=== PATIENT | female | born 1975 | race Caucasian/White ===

== ENCOUNTER → 2018-03-16 15:46 | Outpatient (CLI) | payer OTHER | END | disposition home or self-care (01) | LOC: LAB 15:46 | DX: R10.0 Acute abdomen (principal); N39.0 Urinary tract infection, site not specified ==

== ENCOUNTER 2018-08-08 14:02 | Outpatient (CLI) | payer OTHER | END 2018-08-08 14:16 | disposition home or self-care (01) | LOC: CERTIFICAD 14:02 → LAB 14:02 | DX: Z11.3 Encounter for screening for infections with a predominantly sexual mode of transmission (principal) ==

== ENCOUNTER → 2020-04-21 06:19 | Outpatient (CLI) | payer OTHER | END | disposition home or self-care (01) | LOC: LAB 06:19 | PROVIDERS: ATTEND Obstetrics & Gynecology Gynecology | DX: N92.0 Excessive and frequent menstruation with regular cycle (principal); R05 Cough ==

== ENCOUNTER 2025-02-22 07:02 | Outpatient (CLI) | payer OTHER ==
[2025-02-22 08:50] LABS: ALT/SGPT 27.0 U/L (12-78); AST/SGOT 19.0 U/L (15-37); BILIRUBIN TOTAL 0.56 mg/dL (0.3-1.2); BUN CREA RATIO 19.0 (7.0-25.0); CHOL HDL RATIO 4.1 (0-5.0); CREATININE SERUM 0.8 mg/dL (0.55-1.02); GFR 75.62; GLOBULINA 3.5 G/DL (2.4-3.5); GLUCOSE FASTING 93.0 mg/dL (65-100); HDL 48.0 mg/dl (40-60); LDL 105.0 mg/dl (0-130); OSMOLALITY SERUM 280.0 MOSM/KG (275-295); TSH 2.6 uIU/mL (0.358-3.74); VLDL 44.0 (0-39)
== END 2025-02-22 07:03 | disposition home or self-care (01) ==
LOC: LAB 07:02
DX: E55.9 Vitamin D deficiency, unspecified (principal); E03.8 Other specified hypothyroidism; R73.03 Prediabetes; E78.5 Hyperlipidemia, unspecified

== ENCOUNTER 2025-04-12 09:11 | Outpatient (CLI) | payer OTHER | END 2025-04-12 09:21 | disposition home or self-care (01) | LOC: PPH VACUNA 09:11 | PROVIDERS: ATTEND Emergency Medicine Pediatric Emergency Medicine | DX: Z23 Encounter for immunization (principal) ==